=== PATIENT | male | born 1960 | race Caucasian/White ===

== ENCOUNTER → 2018-06-26 | Outpatient (CLI) | payer OTHER ==
--- NOTE | 2018-06-26 13:54 | MR ---
EXAMINATION TYPE: MR knee LT wo con DATE OF EXAM: 06/26/2018 COMPARISON: Bilateral knee x-ray August 27, 2017 HISTORY: Left knee pain, rule out internal derangement per order. TECHNIQUE: Multiplanar, multisequence images of the knee is performed without IV contrast. FINDINGS: MEDIAL MENISCUS: Anterior and posterior horns short horizontal increased signal does not extend to ar ticular surface. Medial extrusion is seen on coronal images. LATERAL MENISCUS: Anterior horn is intact without tear. Some predominantly oblique increased signal is seen posterior horn, extends to inferior articular surface parasagittal image 9. CRUCIATE LIGAMENTS: The posterior cruciate ligaments is intact and unremarkable. Marked increased sig nal with wavy appearance or distortion of the anterior cruciate ligament is essentially consistent wi th full-thickness ACL tear COLLATERAL LIGAMENTS: The medial collateral ligament and lateral collateral ligament complex are inta ct. Mild increased fluid signal surrounds medial collateral ligament EXTENSOR MECHANISM: Visualized quadriceps and patellar tendons are intact. EFFUSION: There is moderate size suprapatellar joint effusion. POPLITEAL CYST: There is small to moderate size popliteal/miller cyst measuring 5.7 cm craniocaudal di mension sagittal image 22. TRICOMPARTMENT SPACES: There is fairly moderate to advanced joint space loss with moderate spurring i n the patellofemoral compartment. There is moderate to advanced joint space loss with moderate spurri ng medial tibiofemoral compartment. There is moderate spurring with more mild joint space loss latera l tibiofemoral compartment. CARTILAGE: There is chondromalacia patella with thinning and fissuring of articular cartilage along p osterior patellar pole. There is significant cartilaginous loss with areas of full-thickness cartilag inous loss medial tibiofemoral compartment. BONE MARROW SIGNAL: There is some reactive diminished T1 and increased T2 signal involving the medial aspect of the tibial plateau and small area of involvement at level of the distal medial femoral epi condyle slightly posteriorly parasagittal image 27. Heterogeneous cystic change centrally near tibial condyles is present. OTHER: No additional significant abnormality is appreciated. IMPRESSION: 1. Moderate to advanced tricompartment degenerative changes most prominent patellofemoral and medial tibiofemoral compartments. 2. High-grade partial essentially full-thickness ACL tear. 3. Full-thickness tear posterior horn of lateral meniscus. 4. Mild MCL sprain injury. 5. Small to moderate sized popliteal cyst. 6. Moderate size suprapatellar joint effusion.
== END | disposition home or self-care (01) ==
LOC: RADMRIMAIN 11:51
PROVIDERS: ATTEND Physical Medicine & Rehabilitation
DX: S83.512A Sprain of anterior cruciate ligament of left knee, initial encounter (principal); S83.282A Other tear of lateral meniscus, current injury, left knee, initial encounter; S83.412A Sprain of medial collateral ligament of left knee, initial encounter; M17.12 Unilateral primary osteoarthritis, left knee; M71.22 Synovial cyst of popliteal space [Baker], left knee

== ENCOUNTER → 2018-08-20 | Outpatient (CLI) | payer SELFPAY ==
--- NOTE | 2018-08-20 09:54 | XR ---
EXAMINATION TYPE: XR knee complete LT DATE OF EXAM: 08/20/2018 CLINICAL HISTORY: pain TECHNIQUE: Three views of the left knee are obtained. COMPARISON: None. FINDINGS: There is no acute fracture/dislocation. The tri-compartment joint spaces demonstrate mode rate degenerative joint space narrowing. Small suprapatellar joint effusion. The overlying soft tissu e appears unremarkable. IMPRESSION: There is no acute fracture or dislocation ICD 10 NO FRACTURE, INITIAL EVALUATION
== END | disposition home or self-care (01) ==
LOC: RADXRMAIN 09:12
PROVIDERS: ATTEND Orthopaedic Surgery
DX: M25.562 Pain in left knee (principal)

== ENCOUNTER 2018-09-10 11:00 | Inpatient (IN) | payer OTHER ==
[2018-09-02 10:43] VITALS: BMI 35.9
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
[~2018-09-10 11:00] MED LIST: ACETAMINOPHEN TAB 500 MG TAB PO ONE; DEXAMETHASONE SOD PHOSPHATE 10 MG/ML 1 ML VIAL IV ONE; HYDROmorphone 0.5 MG/0.5 ML SYRINGE IVP PRN; MELOXICAM 7.5 MG TAB PO ONE; MIDAZOLAM 2 MG/2 ML VIAL IV PRN; ONDANSETRON 4 MG/2 ML VIAL IVP ONE; SCOPOLAMINE 1.5MG/72HR PATCH TRANSDERM ONE; TRANEXAMIC ACID 1,000 MG in SODIUM CHLORIDE 0.9% 50 ML IVPB ONE; ceFAZolin IN SWFI 2 GM/20 ML SYRINGE IVP ONE
[2018-09-10] MEDS: LACTATED RINGERS 1,000 ML IV SCH (12:02)
[2018-09-10] MEDS ORDERED: fentaNYL (PF) 50 MCG/ML 2 ML AMP IV ONE (12:06)
[2018-09-10] MEDS ORDERED: ROPIVACAINE 1,100 MG, SODIUM CHLORIDE 0.9% 500 ML 330 ML MISCELLANE PRN ×2 (12:50)
--- NOTE | 2018-09-10 12:50 | P.ONQ ---
Anesthesiology Proc Note - PNB - Peripheral Nerve Block Performed Left Adductor Canal Infusion Time Out Performed: Yes Procedure Start Time: 12:07 Procedure Stop Time: :22 Indication: Requested by physician Specifically requested for management of pain by : Lazaro Seals Sedation Type: Sedate with meaningful contact maintained Preparation: Sterile Dressing Position: Supine Catheter: Indwelling (Pujunk) Needle Size: 100mm (4") Needle Gauge: 20 Technique: Ultrasound Injectate: 0.5% Ropivacaine (see comment for volume) (30 ml) Blood Aspirated: No Pain Paresthesia on Injection Noted: No Resistance on Injection: Normal Events: Uneventful and Well Tolerated
[2018-09-10] MEDS ORDERED: ROPIVACAINE 246.25 MG, EPINEPHrine 0.5 MG, KETOROLAC 30 MG, cloNIDine HCL/PF 80 MCG, WA... MISCELLANE ONE ×5 (13:10)
[2018-09-10] MEDS ORDERED: fentaNYL (PF) 50 MCG/ML 2 ML AMP ONE (13:14)
[2018-09-10] MEDS ORDERED: SODIUM CHLORIDE 0.9% 100 ML BAG ONE (13:14)
[2018-09-10] MEDS ORDERED: TRANEXAMIC ACID 1,000 MG/10 ML VIAL ONE (13:14)
[2018-09-10] MEDS ORDERED: MIDAZOLAM 2 MG/2 ML VIAL ONE (13:14)
[2018-09-10] MEDS ORDERED: ceFAZolin 3,000 MG in SODIUM CHLORIDE 0.9% IRRIGATIO 3,000 ML IRRIGATION ONE (13:54)
[2018-09-10] MEDS ORDERED: NALOXONE 0.4 MG/ML 1 ML VIAL IV PRN (15:32)
[2018-09-10] MEDS ORDERED: HYDROcodone/APAP 5-325MG 1 EACH TAB PO PRN (15:32)
[2018-09-10] MEDS ORDERED: ONDANSETRON 4 MG/2 ML VIAL IVP PRN (15:32)
--- NOTE | 2018-09-10 15:39 | P.OP ---
Date of Procedure: 09/10/18 Preoperative Diagnosis: Left knee severe tricompartmental osteoarthrosis Postoperative Diagnosis: Same Procedure(s) Performed: Left total knee arthroplastycruciate retainingcemented Implants: Depuy Attune size 8 cemented femoral component, size 7 cemented tibial component , 9 mm articular surface, 38 mm cemented patellar component. This is a cruciate retaining implant. Anesthesia: regional, local, spinal Surgeon: Lazaro Seals Estimated Blood Loss (ml): 50 Pathology: other (Bone fragments) Condition: stable Disposition: PACU Indications for Procedure: The patient is a 57-year-old male who presents with progressive left knee pain secondary osteoarthrosis despite conservative measures. A discussion of the risks and benefits of continued conservative measures versus operative intervention was made with patient. He opted to proceed with surgery. Operative risks to include infection, neurovascular injury, development of blood clots, possible component loosening, possible component failure and need for subsequent procedures was discussed. Informed consent was obtained. Operative Findings: As below Description of Procedure: The patient was brought to the operating room, and after induction of spinal anesthesia the left lower extremity was prepped and draped in a normal fashion. The tourniquet was inflated to 270 mmHg. A longitudinal incision extending 3 finger breaths above the superior pole of the patella extending to the medial aspect the tibial tubercle was then made. The skin and subcutaneous tissues were divided sharply. Electrocautery was used for hemostasis. A medial parapatellar arthrotomy was then performed. The medial soft tissues to include the superficial and deep portions of the medial collateral ligament as well as the medial hamstring tendons were elevated subperiosteally. The proximal medial tibia osteophytes were carefully removed. The patella was everted. The knee was flexed. A portion of the retropatellar fat pad was excised sharply. The anterior cruciate ligament was sacrificed. A starting hole was made in the distal femur 1 cm anterior to the posterior cruciate origin. An intramedullary femoral guide was gently inserted planning on 5 valgus distal cut with 9 mm distal resection. The cutting block was pinned in place. The distal cut was then made. The posterior referencing sizing guide was utilized. 3 of external rotation was built into the system and verified off the trans- epicondylar axis and the posterior condyles. I felt size 8 was most appropriate. The cutting block was pinned in place. The anterior, posterior, and chamfer cuts were then made. The bone fragments were removed. A sulcus cut was then made with the appropriate guide. The trial size 8 femoral component was then placed and was fully seated. There was good anterior to posterior and medial to lateral fit. The distal peg holes were then drilled. The trial component was then removed. Attention was then paid towards preparing the proximal tibia. An extra medullary guide was utilized in line with the tibial shaft and second metatarsal distally. A 7 posterior slope was planned. I planned on 2 mm resection from the medial compartment. The cutting block was pinned in place. The proximal tibial cut was then made. The bone was removed in one fragment. The remnants of the medial and lateral menisci were excised the capsule junction with electrocautery. The tibia sized most appropriately at size 7. The posterior osteophytes off the distal femur were carefully removed with a curved osteotome. The trial tibial and femoral components were placed along with a 9 millimeters articular surface. I was able to obtain full flexion and extension with good stability with varus and valgus stress. After several flexion and extension cycles, the tibial rotation was marked with electrocautery in line with the medial one third of the tibial tubercle. Attention was then paid towards preparing the patella. A patella reamer was utilized taking this down to 14 mm of bone stock. A good flush cut was made. The patella sized most appropriately at 38 millimeters. The peg holes were then drilled. The trial component was placed. The knee was taken through a range of motion. I had good patellofemoral tracking with no hands technique. The trial components were then removed. The tibia was prepared in the appropriate rotation with appropriate drill and keel punch. The flexion and extension gaps were checked and felt to be symmetric. The posterior soft tissues were injected with ropivacaine. The bony surfaces were prepared with pulsatile lavage and dried. The deep tibial component was then cemented in place and was fully seated. Excess cement was removed. The femoral component was cemented in place and was fully seated. Again excess cement was removed. The trial 9 millimeters surface was then inserted in the knee was put in full extension. The patella component was cemented in place. After the cement had sufficiently hardened, the knee was again taken through a range of motion. Again there was good stability in flexion and extension with varus and valgus stress. The trial articular surface was then removed. The final articular surface was placed and was impacted. Care was taken to avoid any soft tissue interposition. Pulsatile lavage was again utilized. The tourniquet was deflated with approximately 60 minutes total tourniquet time. There was minimal drainage therefore a deep drain was not placed. The medial parapatellar arthrotomy was then closed with #2 Ethibond suture. The subcutaneous tissues were reapproximated interrupted 2-0 Vicryl sutures. The skin was reapproximated with 3-0 subarticular strata fix suture. Skin tape and adhesive was applied. A sterile dressing was applied. The patient was then awoken from sedation and transferred to recovery room in good condition. Blood loss was estimated at 50 milliliters. No complications were incurred. Sponge and needle counts were correct at the end the case.
--- NOTE | 2018-09-10 16:20 | XR ---
EXAMINATION TYPE: XR knee limited LT DATE OF EXAM: 09/10/2018 CLINICAL HISTORY: Postoperative evaluation Two views of the left knee are submitted. Identified are changes of total knee arthroplasty with fem oral and tibial components appearing well seated. Postsurgical soft tissue changes are noted. Align ment is anatomic.
[2018-09-10] MEDS: HYDROcodone/APAP 7.5-325MG 1 EACH TAB PO PRN ×2 (17:58→23:58)
[2018-09-10] MEDS: HYDROmorphone 1 MG/ML 1 ML SYRINGE IVP PRN ×2 (18:15→21:47)
[2018-09-10] MEDS: ceFAZolin IN SWFI 2 GM/20 ML SYRINGE IVP SCH (20:27)
[2018-09-11] MEDS: HYDROmorphone 1 MG/ML 1 ML SYRINGE IVP PRN ×4 (01:12→11:46)
[2018-09-11] MEDS: LACTATED RINGERS 1,000 ML IV SCH (05:46)
[2018-09-11] MEDS: HYDROcodone/APAP 7.5-325MG 1 EACH TAB PO PRN ×2 (05:52→11:45)
[2018-09-11] MEDS: ceFAZolin IN SWFI 2 GM/20 ML SYRINGE IVP SCH (05:52)
--- NOTE | 2018-09-11 07:22 | P.PN ---
Progress Note - Text Progress Note Date: 09/11/18 The patient is status post[ 1] adductor canal catheter placement. The catheter was placed for postoperative pain control, status post total [left Knee] arthroplasty. Ropivacaine 0.2% is infusing at[ 8] mLs per hour. The patient has no complaints of[ left knee] lower extremity numbness or weakness. Patient 's VAS score is[ 7]-10. Assessment: Patient's adductor canal catheter is in place and working appropriately. Plan: continue infusion and adjust it as needed.
[2018-09-11 08:11] LABS: Basophils % (A) 0 %; Eosinophils % (A) 0 %; HCT 38.3 % (39.0-53.0); HGB 13.1 gm/dL (13.0-17.5); Lymphocytes # (A) 1.3 k/uL (1.0-4.8); Lymphocytes % (A) 8 %; MCH 29.6 pg (25.0-35.0); MCHC 34.2 g/dL (31.0-37.0); MCV 86.5 fL (80.0-100.0); Mean Platelet Volume 7.5; Monocytes # (A) 0.9 k/uL (0-1.0); Monocytes % (A) 5 %; Neutrophils % (A) 86 %; Platelet Count 223 k/uL (150-450); RBC 4.43 m/uL (4.30-5.90); RDW 13.2 % (11.5-15.5); WBC 16.3 k/uL (3.8-10.6)
[2018-09-11 08:31] VITALS: BP 125/78; PULSE 67; RESP 16; TEMP 98.2
[2018-09-11] MEDS ORDERED: RIVAROXABAN 10 MG TAB PO SCH (09:00)
[2018-09-11] MEDS ORDERED: HYDROcodone/APAP 7.5-325MG 1 EACH TAB PO PRN (12:09)
--- NOTE | 2018-09-11 12:18 | P.PN ---
Subjective Progress Note Date: 09/11/18 Principal diagnosis: Status post left total knee arthroplasty patient is seen today resting in his hospital bed, he appears comfortable. Slight increasing pain today, we did adjust his oral medication. Patient's ambulated with therapy, he is urinating on his own. He denies any chest pain or shortness of breath. Objective - Vital Signs Vital signs: Vital Signs Temp 98.2 F 09/11/18 07:00 Pulse 67 09/11/18 07:00 Resp 16 09/11/18 08:00 BP 125/78 09/11/18 07:00 Pulse Ox 95 09/11/18 07:00 Intake & Output 09/10/18 09/11/18 09/11/18 18:59 06:59 18:59 Intake Total 701 1920 Output Total 50 Balance 651 1920 Weight 113.398 kg Intake: IV 701 Intake, IV Titration 300 Amount Lactated Ringers 1,000 ml 300 @ 20 mls/hr IV .Q24H SHRUTHI Rx#:[id number] Oral 1620 Output: Estimated Blood Loss 50 Other: Voiding Method Toilet Toilet Urinal Urinal # Voids 3 - Exam Left lower extremity: Incision is clean, dry, and intact. The exofin fusion tape is in good condition. There is minimal soft tissue swelling and ecchymosis surrounding the medial and lateral aspects of the incision. Calf is soft, no tenderness with palpation. Plantar flexion, dorsiflexion, EHL, FHL are intact. Sensory exam to light touch throughout the extremity is intact, dorsal pedis pulses 2+. - Labs CBC & Chem 7: 09/11/18 06:42 Labs: Abnormal Lab Results - Last 24 Hours (Table) 09/11/18 Range/Units 06:42 WBC 16.3 H (3.8-10.6) k/uL Hct 38.3 L (39.0-53.0) % Neutrophils # 14.0 H (1.3-7.7) k/uL Assessment and Plan Plan: Assessment: Postop day #1 status post left total knee arthroplasty Plan: Pain control, did adjust oral medication. Plan to send home on [place] 7.5 mg/ 325 mg GI and DVT prophylaxis, plan for discharge on aspirin 325 mg daily Wound care instructions were discussed Home physical therapy and nursing after discharge Use of CPM after discharge Medical recommendations Discharge planning: Plan for discharge home today Time with Patient: Less than 30
--- NOTE | 2018-09-11 12:24 | P.DS ---
Providers Date of admission: 09/10/18 11:02 Expected date of discharge: 09/11/18 Attending physician: Lazaro Seals Primary care physician: Geoff Caruso Hospital Course: Date of admission: 09/10/2018 Date of discharge: 09/11/2018 Admission diagnosis: Status post left total knee arthroplasty Discharge diagnosis: Same Attending physician: Dr. Seals Surgical procedures: Left total knee arthroplasty Brief history: Patient is a 57-year-old male with a history of progressive primary left knee osteoarthritis. At this point patient has failed conservative treatment measures and has opted to proceed with a elective left total knee arthroplasty. Hospital course: Details of patient's surgery can be found in operative report. Patient tolerated the procedure well and was subsequently transported to orthopedic floor. Patient's orthopeidc and medical care was provided daily. Patient had daily laboratory tests performed for evaluation of overall blood counts. Patient had daily physical therapy to include strengthening range of motion as well as education with walker ambulation. Patient had daily CPM usage as part of their physical therapy program. Patient was treated with Xarelto for their postoperative DVT prophylaxis during their inpatient stay. Patient was noted to have a relatively uneventful postoperative course. Patient reported satisfactory pain control with oral pain medications by postoperative day 0. Patient showed satisfactory progress with physical therapy. Patient moved steadily through the program and had no difficulty meeting the goals by postoperative day 1. Given patient's otherwise satisfactory course and having met physical therapy goals, plan is to discharge patient home on postoperative day 1. Discharge condition/disposition: Patient will be discharged home in stable condition. Discharge medications: Instructions are given on resumption of patient's normal daily medications per primary care recommendation, in addition patient will be prescribed [place] 7.5 mg/325 mg, aspirin 325 mg. Discharge instructions: 1. Wound care and infection precautions, keep incision dry and covered while showering, no lotions, creams, moisturizers. No soaking, tubs, pools, hottubs. Do not scrub over the incision. 2. Weight-bear as tolerated with walker / cane until follow-up. 3. Ice and elevate when necessary. Do not exceed 20 minutes per hour with ice pack. 4. Utilize compression sleeve until seen at first follow up appointment. 5. Visiting nursing care. 6. Home physical therapy including home CPM. 7. Pain meds and anticoagulants per prescription. 8. Pain medication has potential to cause constipation. Increase oral fluid and fiber intake. Contact primary care provider if you have not had a bowel movement within 48 hours after discharge 9. No anti-inflammatory medication until discussed at first post operative visit, this including Motrin, Aleve, Mobic, Diclofenac. 10. Follow up in office at 2 weeks postop with Cruz Sesay PA-C 11. Follow up with your primary care doctor 7-10 days after discharge. 12. Contact [facility] with any questions, . Procedures: Left total knee arthroplasty Patient Condition at Discharge: Good Plan - Discharge Summary Discharge Rx Participant: Yes New Discharge Prescriptions: New Aspirin 325 mg PO DAILY #30 tab HYDROcodone/APAP 7.5-325MG [[place] 7.5] 1 - 2 each PO Q6HR PRN #56 tab PRN Reason: Pain No Action FLUoxetine HCL [PROzac] 80 mg PO DAILY@1200 Buprenorphine HCl [Subutex] 8 mg SL TID Discharge Medication List FLUoxetine HCL [PROzac] 80 mg PO DAILY@1200 10/19/14 [History] Buprenorphine HCl [Subutex] 8 mg SL TID 09/02/18 [History] Aspirin 325 mg PO DAILY #30 tab 09/11/18 [Rx] HYDROcodone/APAP 7.5-325MG [[place] 7.5] 1 - 2 each PO Q6HR PRN #56 tab 09/11/18 [ Rx] Follow up Appointment(s)/Referral(s): [facility],Equipment [NON-STAFF] - As Needed [facility], [NON-STAFF] - As Needed Waylon Sesay, [facility] [PHYSICIAN PERSONAL FITNESS TRAINER] - 2 Weeks Activity/Diet/Wound Care/Special Instructions: Orthopedic Discharge Instructions: 1. Wound care and infection precautions, keep incision dry and covered while showering, no lotions, creams, moisturizers. No soaking, pools, hot tubs. Do not scrub over incision. 2. Weight-bear as tolerated with walker / cane until follow-up. 3. Ice and elevate when necessary. Do not exceed 20 minutes per hour with ice pack. 4. Utilize compression sleeve until seen at first follow up appointment. 5. Pain meds and anticoagulants per prescription. 6. Pain medication has potential to cause constipation. Increase oral fluid and fiber intake. Contact primary care provider if you have not had a bowel movement within 48 hours after discharge. 7. No anti-inflammatory medication until discussed at first post operative visit, this including Motrin, Aleve, Mobic, Diclofenac. 8. Follow up in office at 2 weeks postop with Cruz Sesay PA-C 9. Follow up with your primary care doctor 7-10 days after discharge. 10. Contact [facility] with any questions, . Discharge Disposition: HOME WITH HOME HEALTH SERVICES
== END 2018-09-11 14:44 | disposition home health service (06) | DRG 470 ==
LOC: 2ORMAIN 11:02 → 4SSUR 15:32
PROVIDERS: ADMIT Orthopaedic Surgery; ATTEND Orthopaedic Surgery
PROC: 0SRD0J9 Replacement of Left Knee Joint with Synthetic Substitute, Cemented, Open Approach (ICD-10-PCS; principal; 2018-09-10 13:00)
DX: M17.12 Unilateral primary osteoarthritis, left knee (principal); Z89.511 Acquired absence of right leg below knee; M21.162 Varus deformity, not elsewhere classified, left knee
CPT/HCPCS: 85025; 88300

== ENCOUNTER → 2018-10-08 | Outpatient (CLI) | payer OTHER ==
[2018-10-08 12:23] LABS: HCT 40.7 % (39.0-53.0); HGB 13.5 gm/dL (13.0-17.5); MCH 28.1 pg (25.0-35.0); MCHC 33.2 g/dL (31.0-37.0); MCV 84.7 fL (80.0-100.0); Mean Platelet Volume 6.4; Platelet Count 286 k/uL (150-450); RBC 4.81 m/uL (4.30-5.90); RDW 13.3 % (11.5-15.5); WBC 9.9 k/uL (3.8-10.6)
[2018-10-08 19:27] LABS: Erythrocyte Sedimentation Rate 19 mm/hr (0-15)
== END | disposition home or self-care (01) ==
LOC: LABWHC1 11:35
PROVIDERS: ATTEND Orthopaedic Surgery
DX: Z47.89 Encounter for other orthopedic aftercare (principal); Z89.612 Acquired absence of left leg above knee
CPT/HCPCS: 36415; 85027; 85652; 86140

== ENCOUNTER 2018-12-09 08:48 | Day surgery (SDC) | payer OTHER ==
[2018-12-02 12:03] VITALS: BMI 35.9
--- NOTE | 2018-12-08 09:35 | HP ---
HISTORY AND PHYSICAL CHIEF COMPLAINT: Left knee stiffness. 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 He has undergone adequate rehabilitation; however, notes persistent stiffness. He otherwise had an uncomplicated postoperative course. PAST MEDICAL HISTORY: Significant for arthritis. PAST SURGICAL HISTORY: Significant for right cjbgz-eha-[id number] amputation and left total knee arthroplasty. CURRENT MEDICATIONS: 1. Prozac. 2. Buprenorphine. He denies drug allergies. FAMILY HISTORY: Significant for cancer. SOCIAL HISTORY: Negative for current tobacco or alcohol use. REVIEW OF SYSTEMS: A 16-point review of systems otherwise reviewed and is noncontributory. PHYSICAL EXAMINATION: On examination, the patient is approximately 5 foot 10, 250 pounds of endomorphic habitus. HEENT exam is nonfocal. Neck is supple. He has painless passive motion of the left hip. Straight leg raise is negative. Active motion left knee -10, 85 degrees of flexion. The incision is well healed. There is no warmth or erythema. His knee is stable to varus and valgus stress. Homans is negative. His distal neurovascular appears intact in the left lower extremity. Weightbearing AP and lateral views of the left knee obtained in the office show total knee arthroplasty with components in good position without evidence of lucencies or loosening. IMPRESSION: Status post left total knee arthroplasty with arthrofibrosis. RECOMMENDATIONS: I talked to the patient at length regarding his condition and treatment options. At this point he is having persistent stiffness despite adequate rehabilitation. After thorough discussion, he opts to proceed with manipulation under anesthesia. We will likely perform that utilizing IV sedation. Risks and benefits were discussed at length in layman's terms. MMODL / IJN: [id number] /
[~2018-12-09 08:48] MED LIST changes: -ACETAMINOPHEN TAB 500 MG TAB PO ONE; -HYDROmorphone 0.5 MG/0.5 ML SYRINGE IVP PRN; +LACTATED RINGERS 1,000 ML IV SCH; -MELOXICAM 7.5 MG TAB PO ONE; -MIDAZOLAM 2 MG/2 ML VIAL IV PRN; -TRANEXAMIC ACID 1,000 MG in SODIUM CHLORIDE 0.9% 50 ML IVPB ONE
[2018-12-09 09:19] VITALS: TEMP 97.2
[2018-12-09] MEDS ORDERED: LIDOCAINE 1% 20 ML VIAL (10MG/ML) FOR IV START INTRADERMA ONE (09:33)
[2018-12-09] MEDS: MIDAZOLAM (PF) 2 MG/2 ML VIAL IV PRN ×2 (10:35→11:51)
[2018-12-09] MEDS ORDERED: LIDOCAINE 1% INJ 10MG/ML (20 ML MDV) ONE (11:11)
[2018-12-09] MEDS ORDERED: PROPOFOL 10 MG/ML 20 ML VIAL IV ONE (11:11)
[2018-12-09] MEDS ORDERED: fentaNYL (PF) 50 MCG/ML 2 ML AMP ONE (11:11)
--- NOTE | 2018-12-09 11:43 | P.OP ---
Date of Procedure: 12/09/18 Preoperative Diagnosis: Left knee arthrofibrosis status post total knee arthroplasty Postoperative Diagnosis: Same Procedure(s) Performed: Manipulation under anesthesia left knee Anesthesia: MAC Surgeon: Lazaro Seals Estimated Blood Loss (ml): 0 Pathology: none sent Condition: stable Disposition: PACU Indications for Procedure: The patient's a 57-year-old male who presents after undergoing left total knee arthroplasty with persistent stiffness despite adequate rehabilitation. A discussion of the risks and benefits of manipulation under anesthesia was discussed with the patient he opted to proceed. Risks of this procedure to include fracture, tendon rupture, possible recurrence of stiffness and need for subsequent procedures was discussed. Informed consent was obtained. Operative Findings: As below Description of Procedure: The patient was brought to the recovery room, and after induction of IV sedation the left knee was examined. There was significant block to flexion. Gentle manipulation was performed encountering moderate adhesions. I was able to go from 90 of flexion to 125. I also obtained almost full extension. The patient was then monitored until fully awake. No complications were incurred. There was no blood loss.
[2018-12-09] MEDS: HYDROmorphone 0.5 MG/0.5 ML SYRINGE IVP PRN ×4 (11:46→12:00)
[2018-12-09] MEDS ORDERED: MEPERIDINE 50 MG/ML SYRINGE IVP ONE ×2 (12:06→12:09)
[2018-12-09] MEDS ORDERED: LACTATED RINGERS 1,000 ML IV ONE (12:13)
[2018-12-09 12:24] VITALS: RESP 18
[2018-12-09] MEDS ORDERED: HYDROcodone/APAP 5-325MG 1 EACH TAB PO ONE (12:35)
[2018-12-09 12:56] VITALS: BP 136/81; PULSE 65
== END 2018-12-09 13:04 | disposition home or self-care (01) ==
LOC: OR 08:48
PROVIDERS: ATTEND Orthopaedic Surgery
DX: M24.662 Ankylosis, left knee (principal); Z96.652 Presence of left artificial knee joint; M19.90 Unspecified osteoarthritis, unspecified site; Z89.611 Acquired absence of right leg above knee; E66.9 Obesity, unspecified; Z68.36 Body mass index [BMI] 36.0-36.9, adult; F32.9 Major depressive disorder, single episode, unspecified; F41.9 Anxiety disorder, unspecified; Z79.891 Long term (current) use of opiate analgesic; Z79.899 Other long term (current) drug therapy
CPT/HCPCS: 27570; J1100; J2175; J2405; J2001; J3010; J2704; J1170; J2250

== ENCOUNTER → 2021-02-28 | Outpatient (CLI) | payer MEDICARE, OTHER ==
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
== END | disposition home or self-care (01) ==
LOC: RADXRYALE 11:58
PROVIDERS: ATTEND Neurological Surgery
DX: M46.96 Unspecified inflammatory spondylopathy, lumbar region (principal); Z98.1 Arthrodesis status
CPT/HCPCS: 72100

== ENCOUNTER → 2023-06-28 | Outpatient (CLI) | payer MEDICARE ==
--- NOTE | 2023-06-30 08:08 | MR ---
EXAMINATION TYPE: MR shoulder RT wo con DATE OF EXAM: 06/28/2023 COMPARISON: Outside right shoulder x-ray April 17, 2023 HISTORY: Pain per order. History of rotator cuff tear and prior surgery with difficulty raising arm o verhead for a while. TECHNIQUE: Multiplanar, multisequence imaging of the right shoulder is performed without contrast. FINDINGS: Rotator Cuff: There is artifact from prior rotator cuff surgery involving the humeral head. Surgicall y repaired supraspinatus and infraspinatus tendons remain intact. Some surrounding fluid is noted. Acromioclavicular Joint: There likely was prior distal clavicular resection. Susceptibility artifact at this level is present. No spurring is seen. Distal acromion morphology is unremarkable. Glenohumeral Joint: Small to moderate-sized joint effusion is seen. Narrowing is present. No signific ant spurring is noted. Subchondral cystic change involving the posterior inferior osseous glenoid is noted axial image 11 for reference. Labrum: The labrum appears grossly intact given limitation of non-arthrogram study. Biceps Tendon: The long head of biceps is in normal location within bicipital groove. Bone marrow signal: Manteca-Sachs type deformity is seen. There is increased T2 signal involving the lateral aspect of the head. Other: No additional significant abnormality is appreciated. IMPRESSION: 1. Surgically repaired rotator cuff tendons remain intact. There is abnormal bone marrow edema involv ing the lateral aspect of the humeral head noted. Manteca-Sachs type deformity is seen. 2. At least moderate glenohumeral humeral joint arthropathy is seen as detailed above.
== END | disposition home or self-care (01) ==
LOC: RADMRIMAIN 10:40
PROVIDERS: ATTEND Orthopaedic Surgery
DX: M19.011 Primary osteoarthritis, right shoulder (principal); R60.0 Localized edema

== ENCOUNTER → 2023-09-04 | Outpatient (CLI) | payer MEDICARE ==
[2023-09-04 18:31] LABS: Basophils # (A) 0.02 X 10*3/uL (0.00-0.10); Basophils % (A) 0.2 %; Eosinophils # (A) 0.02 X 10*3/uL (0.04-0.35); Eosinophils % (A) 0.2 %; HCT 42.2 % (39.6-50.0); HGB 14.7 g/dL (13.0-17.0); Lymphocytes % (A) 16.2 %; MCH 29.8 pg (27.0-32.0); MCHC 34.8 g/dL (32.0-37.0); MCV 85.6 FL (80.0-97.0); Mean Platelet Volume 9.7 FL (9.5-12.2); Monocytes # (A) 0.67 X 10*3/uL (0.20-1.00); Monocytes % (A) 6.4 %; NRBC Per 100 WBC 0 X 10*3/uL (0.00-0.01); Neutrophils % (A) 76.4 %; Platelet Count 273 X 10*3/uL (140-440); RBC 4.93 X 10*6/uL (4.40-5.60); WBC 10.47 X 10*3/uL (4.50-10.00)
[2023-09-04 18:42] LABS: BUN/Creat Ratio 20.88 Ratio (12.00-20.00); Blood Urea Nitrogen 16.7 mg/dL (9.0-27.0); Calcium 9.8 mg/dL (8.7-10.3); Carbon Dioxide 22.3 mmol/L (21.6-31.8); Chloride 104 mmol/L (96-109); Glucose 101 mg/dL (70-110); Potassium 4.3 mmol/L (3.5-5.5); Sodium 140 mmol/L (135-145)
== END | disposition home or self-care (01) ==
LOC: LABPAT 14:47
PROVIDERS: ATTEND Orthopaedic Surgery
DX: Z01.812 Encounter for preprocedural laboratory examination (principal); M75.41 Impingement syndrome of right shoulder
CPT/HCPCS: 36415; 80048; 85025

== ENCOUNTER → 2023-09-10 | Day surgery (SDC) | payer MEDICARE ==
[2023-09-04 12:52] VITALS: BMI 25.8
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
[~2023-09-10] MED LIST changes: -DEXAMETHASONE SOD PHOSPHATE 10 MG/ML 1 ML VIAL IV ONE; +DEXAMETHASONE SOD PHOSPHATE 4 MG/ML 1 ML VIAL IVP ONE; +DEXAMETHASONE SOD PHOSPHATE 4 MG/ML 1 ML VIAL ONE; +EPINEPHrine (PF) 1 ML in SODIUM CHLORIDE 0.9% IRRIGATIO 3,000 ML IRRIGATION ONE; +GLYCOPYRROLATE 0.2 MG/ML 2 ML VIAL ONE; +HYDROmorphone (PF) 1 MG/ML ONE; +LACTATED RINGERS 1,000 ML IV ONE; -LACTATED RINGERS 1,000 ML IV SCH; +LIDOCAINE 1% (10MG/ML) FOR IV START INTRADERMA ONE; +LIDOCAINE 1% INJ 10MG/ML (20 ML MDV) ONE; +MIDAZOLAM 2 MG/2 ML VIAL IVP ONE; +NEOSTIGMINE 1 MG/ML 10 ML VIAL ONE; +ONDANSETRON 4 MG/2 ML VIAL ONE; +PROPOFOL 10 MG/ML 20 ML VIAL IV ONE; +ROCURONIUM 10 MG/ML (5 ML VIAL) IV ONE; +ROPIVACAINE 5 MG/ML 30 ML VIAL ONE; -SCOPOLAMINE 1.5MG/72HR PATCH TRANSDERM ONE; +SUCCINYLCHOLINE CHLORIDE 200 MG/10 ML VIAL IV ONE; -ceFAZolin IN SWFI 2 GM/20 ML SYRINGE IVP ONE; +ePHEDrine 50 MG/ML 1 ML VIAL ONE; +fentaNYL (PF) 50 MCG/ML 2 ML AMP IVP ONE
--- NOTE | 2023-09-10 07:15 | P.ANPRN ---
Procedure Note - Anesthesia - Nerve Block Performed Right Interscalene Single Time Out Performed: Yes Date of Procedure: 09/10/23 Procedure Start Time: 06:58 Procedure Stop Time: 07:03 Location of Patient: PreOp Indication: Acute Post-Operative Pain, Requested by Surgeon Sedation Type: Sedate with meaningful contact maintained Preparation: Sterile Prep Position: Supine Needle Types: Pajunk Needle Gauge: 21 Ultrasound used to visualize needle placement: Yes Ultrasound used to observe medication spread: Yes Injectate: 0.5% Ropivacaine (see comment for volume) (20 ml + 4 mg d examethasone) Blood Aspirated: No Pain Paresthesia on Injection Noted: No Resistance on Injection: Normal Image Stored and Saved: Yes Events: Uneventful and Well Tolerated
[2023-09-10 07:28] VITALS: RESP 16
--- NOTE | 2023-09-10 09:37 | P.OP ---
Date of Procedure: 09/10/23 Preoperative Diagnosis: Right rotator cuff tear Postoperative Diagnosis: 3 cm rotator cuff tear, high-grade partial-thickness tear intra-articular portion long head of the biceps Procedure(s) Performed: Right shoulder arthroscopic subacromial decompressionrevision, rotator cuff repairrevision, biceps tenodesis Implants: Arthrex 4.75 mm swivel lock anchor 3, 5.5 mm swivel lock anchor 2 Anesthesia: NORMAA, regional Surgeon: Lazaro Seals Creative Recruiter #1: Rich Camacho Estimated Blood Loss (ml): 10 Pathology: none sent Condition: stable Disposition: PACU Indications for Procedure: Patient is a 62-year-old male presents with progressive right shoulder pain and weakness despite conservative measures. He had a history of an open rotator cuff repair approximately 20 years ago. He opted to proceed with surgery. Operative risks to include infection, neurovascular injury, development of blood clots, possible tendon rerupture, possible postoperative stiffness and need for subsequent procedures was discussed. Informed consent was obtained. Operative Findings: As below Description of Procedure: The patient was brought to the operating room, and after induction of general anesthesia was placed in a beachchair position. A preoperative interscalene block was placed for postoperative analgesia. I examined the right shoulder. There was no gross block to passive motion or gross glenohumeral instability. The right upper extremity was prepped and draped in normal fashion. The bony outlines the acromion, distal clavicle, and coracoid process were outlined with a skin marker. The glenohumeral joint was inflated with 50 mL of saline utilizing a spinal needle from posterior approach. A posterior portal was made through a 5 mm skin incision 1 cm medial and inferior to the posterior lateral border time. A blunt trocar was used to easily into the joint. Diagnostic arthroscopy was performed. An anterior portal was made just lateral to the coracoid process entering the joint above the subscapularis tendon. The subscapularis tendon appeared to be intact. Anterior labrum was intact. The inferior recess was inspected. The posterior labrum was intact. There was a high-grade partial-thickness tear of the long head of the biceps involving interarticular portion. It was elected to proceed with biceps tenodesis at this point. The biceps was captured with a loop intact suture. This was released from the superior labrum with electrocautery and was allowed to retract to the bicipital groove. A 4.75 mm swivel lock anchor was then inserted after tension ing the biceps with good purchase. On inspection the rotator cuff, a full- thickness tear involving the supraspinatus and infraspinatus was noted. The arthroscope was placed into the subacromial space. A lateral portal was made 2 centimeters inferior to the anterior lateral border of the acromion. The rotator cuff was then mobilized with a traction suture. This was then brought back to the greater tuberosity. The soft tissue on the undersurface of the acromion was debrided with a motorized shaver and electrocautery clearly defining the anterior medial and lateral borders as well as the distal clavicle. A revision acromioplasty was performed starting anterolateral, extending this medially and then posteriorly. I converted to a flat acromion and this was verified in the posterior and lateral viewing portals. The greater tuberosity was lightly decorticating with a shaver down to a bleeding bony surface. An accessory superior lateral portals made just off the lateral edge of the acromion for anchor placement. 2 anchors were then placed just off the articular surface with the appropriate starting awl. 4.75 mm anchors preloaded with #2 fiber tape were placed. Good purchase was obtained. These fiber tapes were then passed the rotator cuff with a scorpion suture passer. A lateral row was created crisscrossing these tapes. 5.5 mm swivel lock anchors x2 were placed laterally. Good purchase was obtained. Final arthroscopic view showed adequate compression at the footprint. The arthroscope was then removed. The portals were closed with simple 3-0 nylon sutures. A sterile dressing was applied in addition to an abductor brace. The patient was then awoken from general anesthesia and transferred to recovery room in good condition. Blood loss was estimated at 10 mL. No complications were incurred. Sponge and needle counts were correct in the case. Rich REIS assisted and the major components of the case to include arm positioning, anchor placement, and rotator cuff repair.
[2023-09-10 09:53] VITALS: TEMP 96.9
[2023-09-10 11:05] VITALS: BP 117/76; PULSE 60
== END | disposition home or self-care (01) ==
LOC: OR 05:52
PROVIDERS: ATTEND Orthopaedic Surgery
DX: M75.111 Incomplete rotator cuff tear or rupture of right shoulder, not specified as traumatic (principal); M75.41 Impingement syndrome of right shoulder; M19.90 Unspecified osteoarthritis, unspecified site; M25.811 Other specified joint disorders, right shoulder; N40.0 Benign prostatic hyperplasia without lower urinary tract symptoms; Z87.891 Personal history of nicotine dependence; Z89.511 Acquired absence of right leg below knee
CPT/HCPCS: 64415; 29826; 29827; 29828; C1713 ×4; C1894; J2250; J0330; J1100; J2710; J0690; J2405; J0171; J2001; J3010; J1170; J2795; J2704

== ENCOUNTER 2023-11-26 11:49 | Emergency (ER) | payer MEDICARE ==
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
--- NOTE | 2023-11-26 14:22 | CT ---
EXAMINATION TYPE: CT lumbar spine wo con DATE OF EXAM: 11/26/2023 COMPARISON: None HISTORY: 62-year-old male ataxia, pain TECHNIQUE: Contiguous axial scanning of the lumbar spine without IV contrast. Coronal and sagittal re constructions performed. CT DLP: 1257.6 mGycm Automated exposure control for dose reduction was used. FINDINGS: Incidental 1.6 cm cortical hypodensity right kidney, probable cyst. Punctate 2 mm nonobstructing right renal stone. Partially visualized cyst measuring at least 1.2 cm of the right liver lobe. Postsurgical changes of L1-L3 posterior lumbar fusion and vertebroplasty change of L2. Minimal retrop ulsion of L2 into the ventral spinal canal is demonstrated. 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 Severe hypertrophic facet arthropathy lower lumbar spine. Alignment is maintained. There is mild overall spinal canal narrowing at the L1-L2 level secondary to slight retropulsion of t he L2 superior endplate into the ventral spinal canal. Additional mild spinal canal stenosis L4-L5 fr om disc bulge and ligamentum flavum thickening. Otherwise, no large focal disc herniation or significant spinal canal stenosis seen. On the left, facet arthropathy and mild bulging disc contribute to mild neuroforaminal stenoses throu ghout, greatest at L4-L5. On the right, mild neuroforaminal stenosis at L4-L5. IMPRESSION: 1. STATUS POST L1-L3 POSTERIOR LUMBAR FUSION WITH PRIOR VERTEBROPLASTY AT L2. NO NEW VERTEBRAL COMPRE SSION COLLAPSE OR MALALIGNMENT. 2. BACKGROUND MILD TO MODERATE SPONDYLOTIC CHANGE. CHANGES RESULT IN MILD SPINAL CANAL STENOSES L1-L2 AND L4-L5. NO LARGE FOCAL DISC HERNIATION OR SIGNIFICANT SPINAL CANAL STENOSIS. 3. MODERATE TO SEVERE HYPERTROPHIC FACET ARTHROPATHY LOWER LUMBAR SPINE ALONG WITH BAASTRUP'S DISEASE . 4. VARIABLE MILD NEUROFORAMINAL STENOSES THROUGHOUT THE LEFT SIDE, GREATEST AT L4-L5. MILD ALSO ON TH E RIGHT AT L4-L5.
[2023-11-26] MEDS: KETOROLAC 15 MG/ML 1 ML VIAL IM STA (15:03)
[2023-11-26] MEDS: DEXAMETHASONE SOD PHOSPHATE 10 MG/ML 1 ML VIAL IM STA (15:04)
[2023-11-26] MEDS: ORPHENADRINE 30 MG/ML 2 ML VIAL IM STA (15:04)
[2023-11-26 15:22] VITALS: BP 132/85; PULSE 70; RESP 18; TEMP 98.2
== END 2023-11-26 15:14 | disposition home or self-care (01) ==
LOC: EC 11:49
DX: M47.26 Other spondylosis with radiculopathy, lumbar region (principal); M48.061 Spinal stenosis, lumbar region without neurogenic claudication; F32.A Depression, unspecified; F41.9 Anxiety disorder, unspecified; F12.90 Cannabis use, unspecified, uncomplicated; Z79.899 Other long term (current) drug therapy; Z87.891 Personal history of nicotine dependence
CPT/HCPCS: 72131; 99284; 96372 ×3; J1100; J2360; J1885

== ENCOUNTER → 2024-03-26 | Outpatient (CLI) | payer MEDICARE ==
--- NOTE | 2024-04-09 12:07 | NM ---
EXAMINATION TYPE: NM DatScan Brain SPECT DATE OF EXAM: 03/26/2024 COMPARISON: NONE HISTORY: Tremor TECHNIQUE: 10 drops of Lugol's solution was administered 1 hour prior to injection as a thyroid bloc siddhartha agent. After the administration of 4.95 mCi I-123 Ioflupane DaTscan. Images obtained 3 hours p ost injection. SPECT images of the brain were acquired with axial and coronal reconstructions. FINDINGS: The axial SPECT images demonstrate renal background activity and symmetric and normal activ ity within the bilateral striata. Z score analysis was performed. IMPRESSION: 1. No diagnostic evidence of parkinsonian syndrome\Parkinson's disease.
== END | disposition home or self-care (01) ==
LOC: RADNMMAIN 08:03
PROVIDERS: ATTEND Psychiatry & Neurology Neurology
DX: R25.1 Tremor, unspecified (principal)
CPT/HCPCS: 78803; A9584